=== PATIENT | female | born 1975 | race Caucasian/White ===

== ENCOUNTER 2016-12-30 19:21 | Emergency (ER) | payer OTHER ==
[~2016-12-30] VITALS: Ht 160 cm; Wt 83.3 kg
[2016-12-30] MEDS ORDERED: IBUP80TA (19:52)
[2016-12-30] MEDS ORDERED: HYDR-643 (19:52)
[2016-12-30] MEDS ORDERED: VYVA20CA (19:52)
[2016-12-30] MEDS ORDERED: METH10TA2 (19:52)
[2016-12-30] MEDS ORDERED: ESCI10TA2 (19:52)
[2016-12-30] MEDS ORDERED: NS 1,000 ML IV ONE (22:15)
[2016-12-30] MEDS ORDERED: MORPHINE 2 MG/ML 1ML SYRINGE IV PRN (22:15)
[2016-12-30 22:53] LABS: BASO % 0.5 % (0.0-1.0); EOS # 0.1 K/mm3 (0.0-0.50); EOS % 1.4 % (0.0-3.0); LARGE UNSTAINED CELL # 0.2 K/mm3 (0.0-0.4); LARGE UNSTAINED CELL % 3.3 % (0.0-4.0); LYMPH # 2.7 K/mm3 (1.5-4.5); LYMPH % 40.6 % (24.0-44.0); MEAN CORPUSCULAR HEMOGLOBIN 31.6 pg (27.0-33.0); MEAN CORPUSCULAR HGB CONC 33.4 g/dl (32.0-36.5); MEAN CORPUSCULAR VOLUME 94.8 fl (80.0-96.0); MONO # 0.8 K/mm3 (0.0-0.8); MONO % 12.9 % (0.0-5.0); NEUTROPHILS # 2.5 K/mm3 (1.8-7.7); NEUTROPHILS % 41.2 % (36.0-66.0); PLATELET COUNT, AUTOMATED 233 k/mm3 (150-450); WHITE BLOOD COUNT 6.2 K/mm3 (4.0-10.0)
[2016-12-30] MEDS ORDERED: ONDANSETRON 4MG/2ML VIAL (J2405) IV ONE (23:00)
[2016-12-30 23:17] LABS: ALBUMIN 3.7 GM/DL (3.2-5.2); ALBUMIN/GLOBULIN RATIO 1.19 (1.00-1.93); ALKALINE PHOSPHATASE 61 U/L (45-117); ALT/SGPT 22 U/L (12-78); ANION GAP 4 MEQ/L (8-16); AST/SGOT 19 U/L (15-37); BILIRUBIN,DIRECT < 0.1 MG/DL (0.0-0.2); BILIRUBIN,TOTAL 0.2 MG/DL (0.2-1.0); BLOOD UREA NITROGEN 14 MG/DL (7-18); CALCIUM LEVEL 8.5 MG/DL (8.5-10.1); CARBON DIOXIDE LEVEL 31 MEQ/L (21-32); CHLORIDE LEVEL 103 MEQ/L (98-107); CREATININE FOR GFR 0.77 MG/DL (0.55-1.02); GLOMERULAR FILTRATION RATE > 60.0 (>60); GLUCOSE, FASTING 87 MG/DL (70-105); POTASSIUM SERUM 4.1 MEQ/L (3.5-5.1); SODIUM LEVEL 138 MEQ/L (136-145); TOTAL PROTEIN 6.8 GM/DL (6.4-8.2)
--- NOTE | 2016-12-30 23:30 | REPUSA ---
Clinical history: Right upper quadrant pain. Findings: The pancreas is limited in visualization secondary to overlying bowel gas, but appears yayo sly unremarkable. The liver demonstrates uniform echotexture and echogenicity, with no mass lesions. The gallbladder is unremarkable. The common bile duct measures 6 mm and is within normal limits. The right kidney measures 12.3 cm in length. There is a cyst in the upper pole measuring 10.2 x 7.6 x 9. 3 mm. There is no ascites. Impression: 1. No acute abnormality to explain the patient's pain. 2. Simple cyst in the right kidney.
[2016-12-30] MEDS ORDERED: ZOFR4TAB3 PO (23:47)
[2016-12-30 23:55] VITALS: BP 156/63
[2016-12-31] MEDS ORDERED: ZOFR4TAB3 PO (00:03)
== END 2016-12-30 23:58 | disposition home or self-care (01) ==
LOC: M ED 21:02
DX: K80.50 Calculus of bile duct without cholangitis or cholecystitis without obstruction (principal); N28.1 Cyst of kidney, acquired; R10.11 Right upper quadrant pain; F41.9 Anxiety disorder, unspecified; F32.9 Major depressive disorder, single episode, unspecified; F17.200 Nicotine dependence, unspecified, uncomplicated; Z79.899 Other long term (current) drug therapy
CPT/HCPCS: 76705; 80048; 80076; 83605; 83690; 85025; 96374; 96375; 99283; J2405

== ENCOUNTER → 2017-08-05 | Outpatient (CLI) | payer OTHER | LOC: M LRY 19:07 | DX: M25.512 Pain in left shoulder (principal); M79.602 Pain in left arm; M25.552 Pain in left hip; M54.5 Low back pain; M16.12 Unilateral primary osteoarthritis, left hip; M51.37 Other intervertebral disc degeneration, lumbosacral region | CPT/HCPCS: 72110; G0463 ==

== ENCOUNTER 2018-01-03 18:32 | Emergency (ER) | payer OTHER ==
[2018-01-03] MEDS: LORazepam 0.5 MG TAB PO (20:09)
[2018-01-03 20:18] LABS: HEMATOCRIT 42.6 % (36.0-47.0); HEMOGLOBIN 14.2 g/dl (12.0-15.5); MEAN CORPUSCULAR HEMOGLOBIN 30.9 pg (27.0-33.0); MEAN CORPUSCULAR HGB CONC 33.3 g/dl (32.0-36.5); MEAN CORPUSCULAR VOLUME 92.8 fl (80.0-96.0); PLATELET COUNT, AUTOMATED 301 10^3/uL (150-450); RED BLOOD COUNT 4.59 10^6/uL (4.00-5.40); RED CELL DISTRIBUTION WIDTH 12.1 % (11.5-14.5); WHITE BLOOD COUNT 9.1 10^3/uL (4.0-10.0)
[2018-01-03 20:33] LABS: CONTROL LINE HCG INT CTR LINE PRESENT; HCG, SERUM QUALITATIVE NEGATIVE (NEGATIVE)
[2018-01-03 20:38] LABS: AMPHETAMINES LEVEL URINE POSITIVE (NEGATIVE); BARBITURATES URINE NEGATIVE (NEGATIVE); BENZODIAZEPINES URINE NEGATIVE (NEGATIVE); CANNABINOIDS URINE NEGATIVE (NEGATIVE); COCAINE METABOLITE URINE NEGATIVE (NEGATIVE); METHADONE URINE POSITIVE (NEGATIVE); OPIATES URINE NEGATIVE (NEGATIVE); PHENCYCLIDINE URINE NEGATIVE (NEGATIVE)
[2018-01-03 20:49] LABS: ALBUMIN 4.2 GM/DL (3.2-5.2); ALBUMIN/GLOBULIN RATIO 1.08 (1.00-1.93); ALKALINE PHOSPHATASE 75 U/L (45-117); ALT/SGPT 21 U/L (12-78); ANION GAP 8 MEQ/L (8-16); AST/SGOT 11 U/L (7-37); BILIRUBIN,DIRECT 0.1 MG/DL (0.0-0.2); BILIRUBIN,TOTAL 0.4 MG/DL (0.2-1.0); BLOOD UREA NITROGEN 17 MG/DL (7-18); CARBON DIOXIDE LEVEL 30 MEQ/L (21-32); CHLORIDE LEVEL 102 MEQ/L (98-107); GLOMERULAR FILTRATION RATE > 60.0 (>58); GLUCOSE, FASTING 124 MG/DL (70-100); SALICYLATE LEVEL < 1.7 MG/DL (5.0-30.0); SODIUM LEVEL 140 MEQ/L (136-145); TOTAL PROTEIN 8.1 GM/DL (6.4-8.2)
[2018-01-03 20:51] LABS: ACETAMINOPHEN LEVEL < 2.0 UG/ML (10.0-30.0); ETHYL ALCOHOL (ETHANOL) < 0.003 % (0.000-0.010)
== END 2018-01-03 22:17 | disposition home or self-care (01) ==
LOC: M ED 18:32
DX: F33.9 Major depressive disorder, recurrent, unspecified (principal); F41.9 Anxiety disorder, unspecified; F17.200 Nicotine dependence, unspecified, uncomplicated; Z79.899 Other long term (current) drug therapy
CPT/HCPCS: G0480

== ENCOUNTER → 2018-01-07 | Outpatient (CLI) | payer OTHER | LOC: M OUTALCOH 09:23 | DX: Z13.9 Encounter for screening, unspecified (principal); F11.10 Opioid abuse, uncomplicated | CPT/HCPCS: H0050 ==

== ENCOUNTER 2018-01-13 13:54 | Emergency (ER) | payer OTHER ==
[2018-01-13 16:33] LABS: BASO % 0.5 % (0.0-1.0); EOS % 0.1 % (0.0-3.0); HEMATOCRIT 39.1 % (36.0-47.0); HEMOGLOBIN 13.4 g/dl (12.0-15.5); IMMATURE GRANULOCYTE % 0.3 % (0-3.0); LYMPH # 2.3 10^3/uL (1.5-4.5); LYMPH % 25.5 % (24.0-44.0); MEAN CORPUSCULAR HEMOGLOBIN 31.8 pg (27.0-33.0); MEAN CORPUSCULAR HGB CONC 34.3 g/dl (32.0-36.5); MEAN CORPUSCULAR VOLUME 92.7 fl (80.0-96.0); MONO # 0.8 10^3/uL (0.0-0.8); MONO % 8.6 % (0.0-5.0); NEUTROPHILS # 5.7 10^3/uL (1.8-7.7); PLATELET COUNT, AUTOMATED 260 10^3/uL (150-450); RED BLOOD COUNT 4.22 10^6/uL (4.00-5.40); RED CELL DISTRIBUTION WIDTH 12.3 % (11.5-14.5); WHITE BLOOD COUNT 8.8 10^3/uL (4.0-10.0)
[2018-01-13 16:38] LABS: AMORPHOUS SEDIMENT SMALL (NEGATIVE); APPEARANCE, URINE CLOUDY (CLEAR); BACTERIA, URINE AUTO NEGATIVE (NEGATIVE); BILIRUBIN, URINE AUTO NEGATIVE (NEGATIVE); BLOOD, URINE BLOOD NEGATIVE (NEGATIVE); CALCIUM OXALATE CRYSTALS SMALL; COLOR, URINE YELLOW (YELLOW); GLUCOSE, URINE (UA) AUTO NEGATIVE (NEGATIVE); KETONE, URINE AUTO NEGATIVE (NEGATIVE); LEUKOCYTE ESTERASE, URINE AUTO TRACE (NEGATIVE); MUCUS, URINE LARGE (NEGATIVE); NITRITE, URINE AUTO NEGATIVE (NEGATIVE); PROTEIN, URINE AUTO NEGATIVE (NEGATIVE); RBC, URINE AUTO 2 /HPF (0-3); SPECIFIC GRAVITY URINE AUTO 1.024 (1.002-1.035); SQUAMOUS EPITHELIAL CELL UR AU 6 /HPF (0-6); UROBILINOGEN, URINE AUTO 0.2 mg/dL (0.0-2.0); WBC, URINE AUTO 3 /HPF (0-3)
[2018-01-13] MEDS: METHOCARBAMOL 1,000 MG/10 ML VIAL (J2800) IV (16:41)
[2018-01-13] MEDS: NS 1,000 ML IV (16:41)
[2018-01-13 17:03] LABS: ALBUMIN 3.7 GM/DL (3.2-5.2); ALBUMIN/GLOBULIN RATIO 1.12 (1.00-1.93); ALKALINE PHOSPHATASE 63 U/L (45-117); ALT/SGPT 19 U/L (12-78); ANION GAP 8 MEQ/L (8-16); AST/SGOT 11 U/L (7-37); BILIRUBIN,TOTAL 0.3 MG/DL (0.2-1.0); BLOOD UREA NITROGEN 10 MG/DL (7-18); CALCIUM LEVEL 8.3 MG/DL (8.5-10.1); CARBON DIOXIDE LEVEL 27 MEQ/L (21-32); CHLORIDE LEVEL 108 MEQ/L (98-107); CREATININE FOR GFR 0.75 MG/DL (0.55-1.30); GLOMERULAR FILTRATION RATE > 60.0 (>58); GLUCOSE, FASTING 105 MG/DL (70-100); LIPASE 140 U/L (73-393); POTASSIUM SERUM 3.5 MEQ/L (3.5-5.1); SODIUM LEVEL 143 MEQ/L (136-145)
[2018-01-13] MEDS ORDERED: ISOVUE-370 76% 100ML VIAL (Q9967) As Ordered (17:21)
== END 2018-01-13 19:02 | disposition home or self-care (01) ==
LOC: M ED 13:54
DX: R19.7 Diarrhea, unspecified (principal); R10.84 Generalized abdominal pain; N28.1 Cyst of kidney, acquired; M51.9 Unspecified thoracic, thoracolumbar and lumbosacral intervertebral disc disorder; F17.210 Nicotine dependence, cigarettes, uncomplicated; Z79.899 Other long term (current) drug therapy
CPT/HCPCS: Q9967

== ENCOUNTER → 2018-01-31 | Outpatient (REF) ==
[2018-01-31 15:29] LABS: RUBELLA IgG QUALITATIVE IMMUNE (IMMUNE)
[2018-02-01 11:31] LABS: RUBEOLA IgG ANTIBODY 96.3 AU/mL (Immune >29.9)
== END ==
LOC: M LAB 14:16
DX: Z02.89 Encounter for other administrative examinations (principal)

== ENCOUNTER → 2018-04-02 | Outpatient (REF) | payer OTHER | LOC: M SFHCLERA 16:21 | DX: J02.9 Acute pharyngitis, unspecified (principal) ==

== ENCOUNTER → 2018-09-19 | Outpatient (REF) | payer OTHER ==
[~2018-09-19] MED LIST: ADDE20CA3; CLON1TAB8; CLON1TAB8 PO; CYMB1CAP4 PO; ESCI10TA2; HYDR-643; IBUP80TA; METH10TA2; METH4PACK; PROM50TA4 PO; VYVA20CA; ZOFR4TAB14 PO
== END ==
LOC: M SFHCLERA 18:47
PROVIDERS: ATTEND Physician Assistant
DX: J02.9 Acute pharyngitis, unspecified (principal)

== ENCOUNTER → 2018-09-22 | Outpatient (CLI) | payer OTHER | LOC: M LRY 15:16 | PROVIDERS: ATTEND Physician Assistant | DX: R50.9 Fever, unspecified (principal); R05 Cough; Z53.8 Procedure and treatment not carried out for other reasons ==

== ENCOUNTER 2019-01-19 13:40 | Emergency (ER) | payer OTHER ==
[~2019-01-19] VITALS: Ht 160 cm; Wt 72.7 kg
[2019-01-19 13:41] VITALS: BP 152/93
[2019-01-20] MEDS ORDERED: PRED20TA PO (10:42)
== END 2019-01-19 15:55 | disposition left against medical advice (07) ==
LOC: M ED 13:40
DX: R07.0 Pain in throat (principal); Z53.21 Procedure and treatment not carried out due to patient leaving prior to being seen by health care provider

== ENCOUNTER → 2019-01-30 | Outpatient (REF) | payer OTHER ==
[~2019-01-30] MED LIST changes: +PRED20TA PO
[2019-01-30 20:27] LABS: BASO # 0.1 10^3/uL (0.0-0.2); BASO % 0.6 % (0.0-1.0); EOS # 0.1 10^3/uL (0.0-0.50); EOS % 0.7 % (0.0-3.0); HEMATOCRIT 39.8 % (36.0-47.0); HEMOGLOBIN 13.4 g/dl (12.0-15.5); LYMPH # 1.3 10^3/uL (1.5-4.5); LYMPH % 14.7 % (24.0-44.0); MEAN CORPUSCULAR HEMOGLOBIN 33.1 pg (27.0-33.0); MEAN CORPUSCULAR HGB CONC 33.7 g/dl (32.0-36.5); MEAN CORPUSCULAR VOLUME 98.3 fl (80.0-96.0); MONO # 0.8 10^3/uL (0.0-0.8); MONO % 9.3 % (0.0-5.0); NEUTROPHILS # 6.8 10^3/uL (1.8-7.7); NEUTROPHILS % 74.4 % (36.0-66.0); PLATELET COUNT, AUTOMATED 258 10^3/uL (150-450); RED BLOOD COUNT 4.05 10^6/uL (4.00-5.40); WHITE BLOOD COUNT 9.1 10^3/uL (4.0-10.0)
[2019-01-30 20:50] LABS: FREE T4 0.76 NG/DL (0.76-1.46); THYROID STIMULATING HORMONE 1.6 uIU/ML (0.358-3.740)
== END ==
LOC: M SFHCLERA 16:32
PROVIDERS: ATTEND Physician Assistant Medical
DX: J30.9 Allergic rhinitis, unspecified (principal)

== ENCOUNTER → 2019-02-12 | Outpatient (REF) | payer OTHER | LOC: M LAB REF 17:16 | PROVIDERS: ATTEND Internal Medicine Endocrinology, Diabetes & Metabolism | DX: E04.1 Nontoxic single thyroid nodule (principal) ==

== ENCOUNTER 2019-03-18 13:44 | Emergency (ER) | payer OTHER ==
[~2019-03-18] VITALS: Ht 160 cm; Wt 72.7 kg
[2019-03-18] MEDS ORDERED: ACET-861 PO (14:03)
[2019-03-18] MEDS ORDERED: VALA500T5 (14:05)
[2019-03-18] MEDS ORDERED: AMPH30CA (14:05)
[2019-03-18] MEDS ORDERED: LORA-674 (14:05)
[2019-03-18] MEDS ORDERED: IBUP-1022 (14:05)
[2019-03-18 14:49] LABS: BASO % 0.4 % (0.0-1.0); EOS % 0.5 % (0.0-3.0); HEMOGLOBIN 13.9 g/dl (12.0-15.5); LYMPH # 1.5 10^3/uL (1.5-5.0); LYMPH % 20.1 % (24.0-44.0); MEAN CORPUSCULAR HEMOGLOBIN 32.4 pg (27.0-33.0); MEAN CORPUSCULAR HGB CONC 33.9 g/dl (32.0-36.5); MEAN CORPUSCULAR VOLUME 95.6 fl (80.0-96.0); MONO # 0.6 10^3/uL (0.0-0.8); MONO % 8.3 % (0.0-5.0); NEUTROPHILS # 5.3 10^3/uL (1.5-8.5); NEUTROPHILS % 70.4 % (36.0-66.0); PLATELET COUNT, AUTOMATED 279 10^3/uL (150-450); RED BLOOD COUNT 4.29 10^6/uL (4.00-5.40); WHITE BLOOD COUNT 7.6 10^3/uL (4.0-10.0)
[2019-03-18 15:23] LABS: BLOOD UREA NITROGEN 15 MG/DL (7-18); CALCIUM LEVEL 8.9 MG/DL (8.5-10.1); CARBON DIOXIDE LEVEL 29 MEQ/L (21-32); CHLORIDE LEVEL 107 MEQ/L (98-107); CK-MB VALUE MASS 1.6 NG/ML (<3.6); CPK CREATINE PHOSPHOKINASE 199 U/L (26-192); CREATININE FOR GFR 0.68 MG/DL (0.55-1.30); GLOMERULAR FILTRATION RATE > 60.0 (>58); GLUCOSE, FASTING 110 MG/DL (70-100); POTASSIUM SERUM 3.9 MEQ/L (3.5-5.1); SODIUM LEVEL 139 MEQ/L (136-145); TROPONIN I < 0.02 NG/ML (< 0.10)
[2019-03-18] MEDS ORDERED: ISOVUE-370 76% 100ML VIAL (Q9967) As Ordered ONE (15:51)
[2019-03-18] MEDS ORDERED: KETOROLAC 30 MG/ML VIAL (J1885) IV ONE (16:00)
[2019-03-18 16:14] LABS: FREE THYROXINE INDEX 2.4 % (1.3-4.8); T UPTAKE 31 % (30-39); THYROXINE (T4) 7.8 UG/DL (4.5-12.0)
--- NOTE | 2019-03-18 16:33 | REP ---
Clinical: Enlarged tender thyroid gland. Technique: Axial contrast enhanced images from the skull base to the thoracic inlet with coronal and sagittal re-formations using 100 ml Isovue 370 intravenous contrast material. Findings: The right thyroid gland appears to be completely replaced by a large low density possibly complex cystic lesion/nodule which measures roughly 7.8 x 5.2 x 4.1 cm causing mass effect and mild contralateral midline shift to the trachea. No obvious significant residual normal enhancing thyroid tissue to the right lobe is appreciated. There is no significant enhancement pattern or internal gas to suggest abscess. These findings are relatively similar to recent ultrasound dated 01/20/2019. Associated reactive adenopathy in the cervical and jugular chains are appreciated measuring up to 2 cm and suggest an infectious/inflammatory process of the thyroid gland. Remainder of the contrast enhanced CT of the neck appears normal. Impression: Enlarged right thyroid lobe with relatively low density texture and no significant obvious enhancement. Associated adenopathy is appreciated and findings suggest an infectious/inflammatory process and possible phlegmonous changes without discrete abscess. Ultrasound examination should be considered to evaluate for drainable fluid or other abnormality. Electronically Signed by Kranthi Sabillon MD 03/18/2019 04:24 P
[2019-03-18] MEDS ORDERED: CLINDAMYCIN 300 MG in IV 1 EA IV ONE (18:00)
[2019-03-18] MEDS ORDERED: IBUPROFEN 600 MG TAB PO ONE (18:30)
[2019-03-18 18:53] VITALS: BP 124/80
--- NOTE | 2019-03-18 20:28 | ECGEPIP ---
[facility] - ED Test Date: 2019-03-18 Pat Name: MYRON VELEZ Department: Room: - Gender: Female Warehouse Logistics Manager: KARIS : 1975 Requested By: KIMANI FONTENOT Order Number: [id number] Reading MD: Angela Martin Measurements Intervals [place] Rate: 110 P: 73 WV: 146 QRS: -75 QRSD: 82 T: 57 QT: 321 QTc: 435 Interpretive Statements SINUS TACHYCARDIA LEFT ANTERIOR FASCICULAR BLOCK NSTTW abnormalities NO PRIOR Electronically Signed on 03-18-2019 20:28:33 EDT by Angela Martin
[2019-04-08] MEDS ORDERED: PRED50TA PO (13:51)
[2019-04-08] MEDS ORDERED: ATIV1TAB10 PO (13:52)
[2019-04-09] MEDS ORDERED: OLAN10TA2 PO (09:31)
[2019-04-09] MEDS ORDERED: PROC10TA4 PO (09:31)
[2019-04-09] MEDS ORDERED: ONDA8TAB7 PO (09:31)
== END 2019-03-18 18:55 | disposition short-term general hospital (02) ==
LOC: M ED 13:44
DX: E06.9 Thyroiditis, unspecified (principal); R00.0 Tachycardia, unspecified; I44.4 Left anterior fascicular block; F17.200 Nicotine dependence, unspecified, uncomplicated; Z79.899 Other long term (current) drug therapy
CPT/HCPCS: 36415; 70491; 80048; 82550; 82553; 84436; 84439; 84443; 84479; 84484; 85025; 93005; 93041; 94760; 96365; 99285; Q9967

== ENCOUNTER → 2019-04-07 | Outpatient (CLI) | payer OTHER ==
[~2019-04-07] MED LIST changes: +ACET-861 PO; +AMPH30CA; +ATIV1TAB10 PO; +IBUP-1022; +LIDO2.5C15 TOP; +LORA-674; +OLAN10TA2 PO; +ONDA8TAB7 PO; +PRED50TA PO; +PROC10TA4 PO; +VALA500T5
--- NOTE | 2019-04-08 23:27 | ECHO ---
DATE OF PROCEDURE: 04/07/2019 AGE: 43 GENDER: Female HEIGHT: 63 inches WEIGHT: 160 pounds BODY SURFACE AREA: 1.76 m2 PATIENT LOCATION: Outpatient REFERRING PHYSICIAN: Liss Rosenbaum NP INDICATION: Lymphoma, potentially cardiotoxic chemotherapy. 2-D MEASUREMENTS: RV: 3.0 cm LV: 5.4 cm Septum: 0.8 cm Posterior wall: 0.8 cm Aortic root: 2.8 cm LA: 2.9 cm LVEF: 70% DOPPLER MEASUREMENTS: AV: 1.4 m/s LVOT: 1.0 m/s LVOT diameter: 2.0 cm MV-E: 94, A: 65, EA ratio: 1.5 Early mitral deceleration time: 150 ms E prime: 12.4, A prime: 9, E/E prime ratio: 7.6 PV: 0.9 m/s Pulmonary artery acceleration time: 140 ms PASP: 20 mmHg IVC: 1.3 cm COMMENTS Normal sinus rhythm without intraventricular conduction disturbance. M-mode and two-dimensional echocardiography was performed with pulsed, continuous wave, color flow and tissue Doppler studies. Normal left ventricular size, wall thickness and hyperkinetic wall motion. Normal left atrial size and Doppler assessment of LV diastolic function and estimated mean left atrial pressure. Normal right heart chamber sizes and motion and estimated pulmonary arterial pressure. Normal IVC size and collapse against an elevated pulmonary vascular resistance. Normal appearing and functioning valvular structures. Normal aortic root size. No apparent intracardiac mass or pericardial effusion.
== END ==
LOC: M CARPUL 09:17
PROVIDERS: ATTEND Nurse Practitioner Family
DX: C85.10 Unspecified B-cell lymphoma, unspecified site (principal)

== ENCOUNTER → 2019-04-08 | Outpatient (CLI) | payer OTHER ==
[~2019-04-08] MED LIST changes: +GASTROGRAFIN SOLUTION 30ML (Q9963) As Ordered ONE; +ISOVUE-370 76% 100ML VIAL (Q9967) As Ordered ONE
--- NOTE | 2019-04-08 12:30 | REP ---
CT of the chest with IV contrast: There are no comparison chest CT studies. There is a large anterior mediastinal mass measuring up to 5.0 cm in AP diameter resulting in shift of the upper trachea to the left and slight tracheal narrowing. This may represent a thyroid mass. There is no other mediastinal adenopathy or mass. There is no hilar adenopathy. There is no axillary adenopathy. There are no infiltrates or pleural effusions. There are no lung nodules or masses. There are no lytic, blastic or destructive skeletal changes. Impression: Large anterior mediastinal mass as described, similar to the neck CT dated 03/18/2019. No other mediastinal, hilar or axillary adenopathy or mass. There are no lung masses or nodules. There are no infiltrates or effusions. No skeletal lesions are identified. Electronically Signed by Dae Plascencia MD 04/08/2019 12:21 P
--- NOTE | 2019-04-08 12:41 | REP ---
CT of the abdomen and pelvis with IV and oral contrast: Comparison is 2017. The study is performed. Contiguous with the chest CT of this same date. There is a dual phase imaging, initially during the portal venous phase of enhancement and again during the equilibrium phase of enhancement. The visualized lower lung real are unremarkable. The the hepatic parenchyma is homogeneous. The gallbladder, pancreas and spleen are unremarkable. The adrenals and kidneys are unremarkable except for a small left renal upper pole Bosniak type 1 renal cortical cyst, unchanged from the prior study. The abdominal aorta is unremarkable. There is no periaortic adenopathy or mass. The large and small bowel are unremarkable. The mesentery is unremarkable. There is no mesenteric lymph node enlargement. There is no ascites. Pelvis: The appendix is unremarkable. The uterus and left adnexa are unremarkable. There is a right adnexal 15 ml follicle. The bladder is unremarkable. There is no pelvic adenopathy. There is no pelvic ascites. There are no lytic, blastic or destructive skeletal changes. Impression: Essentially negative CT study of the abdomen and pelvis. There is no lymphadenopathy, mass, or ascites. Electronically Signed by Dae Plascencia MD 04/08/2019 12:32 P
--- NOTE | 2019-04-08 13:33 | REP ---
CT NECK WITH IV CONTRAST: CT soft tissues neck performed following the intravenous administration of 100 mL of Isovue 370. Sagittal and coronal reconstruction images are performed. Comparison is made with a prior study of 03/18/2019. Once again there is a large mass in the region of the right thyroid. Superior extent is at about the level of the hyoid bone and inferiorly the mass extends into the superior mediastinum. There is mild mass effect and on the trachea, mildly narrowing the trachea. This unchanged since 03/18/2019. Trachea is deviated to the left of midline. Size appears to have slightly increased since that prior exam. Maximum AP dimension is approximately 5.3 cm, previously about 5 cm. Maximum transverse dimension is approximately 6.5 cm, previously 5.9 cm. Visually the craniocaudal dimension appears to have slightly increased, but it is difficult to measure as the inferior margin is not well defined. There is mild increase in adenopathy. There are two enlarged lymph nodes at the posterior angle of the right mandible, one anterior to the jugular vein measuring about 2.3 x 1.3 cm and another posterior to the jugular vein measuring approximately 2.3 x 1.6 cm. Both of these have increased in size. Multiple subcentimeter lymph nodes are seen along the carotid and jugular vessels both on the right and the left. A cluster of adenopathy in the right supraclavicular region along the posterior margin of the carotid and jugular vessels appears to have slightly increased in size. A mildly enlarged left paratracheal lymph node is seen at that level 1.3 cm in short axis and another is seen more laterally 1.1 cm in short axis. A mildly enlarged lymph node is seen in the left posterior triangle at about the level of the hyoid bone. Parotid glands are symmetrical as are the submandibular glands with no intrinsic abnormality. There may be mild enlargement of the right palatine tonsil. Aryepiglottic folds are symmetrical. There are mild degenerative changes of the spine. IMPRESSION: Mild increase in size of large mass in the region of the right thyroid. There is mild impression upon the trachea causing mild luminal narrowing, but the caliber is unchanged since 03/18/2019. Trachea is deviated to the left. There is mild increase in bilateral neck adenopathy, which is more significant on the right than on the left. Electronically Signed by Dae Ann MD 04/08/2019 03:20 P
== END ==
LOC: M RAD 10:17
PROVIDERS: ATTEND Nurse Practitioner Family
DX: C85.11 Unspecified B-cell lymphoma, lymph nodes of head, face, and neck (principal)

== ENCOUNTER → 2019-04-13 | Outpatient (CLI) | payer OTHER ==
[~2019-04-13] MED LIST changes: +AMPH1CAP5; -AMPH30CA; +EFFE37.5 PO; -GASTROGRAFIN SOLUTION 30ML (Q9963) As Ordered ONE; -ISOVUE-370 76% 100ML VIAL (Q9967) As Ordered ONE; +LEXA1TAB PO; +LIDOCAINE 1% MDV 20ML VIAL As Ordered ONE; +MIDAZOLAM INJ 2 MG/2 ML VIAL (J2250) As Ordered ONE; +ONDA8TAB10 PO; -ONDA8TAB7 PO; +PRIL20TA2 PO; +VITA1CAP25 PO; +ZITH250T PO; +ceFAZolin 1GM INJ (J0690 PER 500MG) As Ordered ONE; +diphenhydrAMINE INJ 50MG/ML VIAL (J1200) As Ordered ONE; +fentaNYL 100 MCG/2 ML INJECTION (J3010) As Ordered ONE
--- NOTE | 2019-04-13 10:21 | POST-OPPD ---
Postoperative Procedure Note Date Of Procedure: Apr 13, 2019 Time Of Procedure: 10:19 PREOPERATIVE DIAGNOSIS: lymphoma POSTOPERATIVE DIAGNOSIS: lymphoma FINDINGS: partially patent right IJ PROCEDURE: right IJ port SURGEON: Adriana ANESTHESIA: moderate sedation ESTIMATED BLOOD LOSS: < 5 ml COMPLICATIONS: none POSTOPERATIVE CONDITION: stable LUCRECIA CLARK MD Apr 13, 2019 10:21
[2019-04-13 10:55] VITALS: BP 144/90
--- NOTE | 2019-04-13 15:10 | REP ---
IR Ultrasound and fluoroscopy-guided port placement. IR Ultrasound of the neck. IR Moderate sedation. Clinical information: Lymphoma. Physician: Dr. Wright. Procedure: The patient was advised of the benefits, risks, and alternatives of the procedure and informed consent was obtained. A time-out was performed with verification of the patient's name, MRN, site of procedure and type of procedure to be performed. The patient was positioned in the supine position on the angiographic table. The site was prepped and draped in the usual sterile fashion. Moderate sedation was performed by the physician including the presence of an independent trained observer who assisted and monitored the patient's level of consciousness and physiologic status. Following the administration of Fentanyl and Versed, the physician spent 45 minutes of continuous face to face time with the patient. Ultrasound of the neck reveals a patent and partly compressible right internal jugular vein. A pouch maker radiograph reveals no gross abnormality. The neck and anterior chest wall were anesthetized with lidocaine. The right internal jugular vein was accessed using a microintroducer needle by a lateral approach. An 018 wire was advanced into the superior vena cava, the needle was removed and a microsheath was placed. An Amplatz wire was then passed into the inferior vena cava. An incision at the internal jugular vein access site and anterior chest wall were made using a scalpel. An incision was made at the anterior chest wall. A small pocket was created using a combination of blunt and sharp dissection. A tunneling device was then used to pass the catheter from the pocket to the neck puncture site. An 8-[place] [employer] smart power port was then positioned in the pocket. The catheter was then measured and cut. The introducer sheath was exchanged for a peel-away sheath. The catheter was passed through the peel-away sheath into the internal jugular vein and the peel-away sheath was removed. The port tip was positioned at the cavo atrial junction. The port was then accessed with a Burton needle. The port flushes and aspirates well. The puncture site in the neck was closed. The chest wall incision was then closed with 2-0 Vicryl and 4-0 Monocryl. Glue and Steri-Strips were applied. A sterile dressing was then applied. The patient tolerated the procedure well and was returned to the PRU in stable condition. Estimated blood loss: <5 ml. Complications: None. Conclusion: 1. Successful placement of an 8-[place] [employer] smart power port via the right internal jugular vein. The port is ready for immediate use. 2. Patient to follow up in IR clinic in 2 weeks. Thank you for this referral. Electronically Signed by Callie Wright MD 04/13/2019 03:08 P
== END ==
LOC: M IRPRO 07:25
PROVIDERS: ATTEND Radiology Diagnostic Radiology
DX: C83.30 Diffuse large B-cell lymphoma, unspecified site (principal); J30.9 Allergic rhinitis, unspecified; E04.9 Nontoxic goiter, unspecified
CPT/HCPCS: 36561; 76937; 99152; 99153; C1769; C1788; C1894; J0690; J1200; J2250; J3010

== ENCOUNTER → 2019-04-21 | Outpatient (CLI) | payer OTHER ==
[~2019-04-21] MED LIST changes: -AMPH1CAP5; +AMPH30CA; -EFFE37.5 PO; -LEXA1TAB PO; -LIDOCAINE 1% MDV 20ML VIAL As Ordered ONE; -MIDAZOLAM INJ 2 MG/2 ML VIAL (J2250) As Ordered ONE; -ONDA8TAB10 PO; +ONDA8TAB7 PO; -PRIL20TA2 PO; -ceFAZolin 1GM INJ (J0690 PER 500MG) As Ordered ONE; -diphenhydrAMINE INJ 50MG/ML VIAL (J1200) As Ordered ONE; -fentaNYL 100 MCG/2 ML INJECTION (J3010) As Ordered ONE
--- NOTE | 2019-04-21 17:56 | REP ---
PET/CT: History: Staging B-cell lymphoma. Status post excisional biopsy right cervical lymphadenopathy and chemotherapy. Comparisons: Comparison CT study of the neck, chest, abdomen and pelvis April 08, 2019. TECHNIQUE: 49 minutes following the intravenous injection of a 8.50 mCi dose of F-18 FDG, three-dimensional PET scintigraphy is acquired from the skull base to the proximal thighs. Triplanar noncontrast CT scanning is acquired through the same anatomic range for attenuation correction, and image registration with scan parameters optimized to minimize radiation exposure to the patient. PET scintigraphy and CT datasets were fused and displayed on a workstation with multiplanar and projection display capability. PET/CT Findings: The previously noted large bulky adenopathy in the right neck is much improved. There is a small focus of minimally hypermetabolic uptake in the right neck subcutaneously with maximum standard uptake value 3.2. Mildly hypermetabolic uptake is seen in the right thyroid bed just to the right of the trachea, maximum standard uptake value 3.77. There is a right-sided Kyrobd-C-Pqyg. There is no abnormal hypermetabolic uptake in the thorax. There is no abnormal hypermetabolic uptake in the abdomen or pelvis. There is diffuse increased uptake in the axial skeleton consistent with reactive marrow activity induced by chemotherapy. No focal suspicious uptake. There is some mild misregistration due to patient movement. Impression: The right neck lymphadenopathy is markedly improved. Mild residual hypermetabolic uptake in the right thyroid bed and in a single focus in the subcutaneous region of the right neck. No other hypermetabolic uptake is appreciated. Electronically Signed by Babatunde Spivey MD 04/22/2019 09:17 A
== END ==
LOC: M PLARAD 12:05
PROVIDERS: ATTEND Nurse Practitioner Family
DX: C83.31 Diffuse large B-cell lymphoma, lymph nodes of head, face, and neck (principal)

== ENCOUNTER 2019-05-13 22:15 | Emergency (ER) | payer OTHER ==
[~2019-05-13] VITALS: Ht 160 cm; Wt 61.4 kg
[~2019-05-13 22:15] MED LIST changes: +AMPH1CAP5; -AMPH30CA
[2019-05-13 23:21] LABS: HEMATOCRIT 36.2 % (36.0-47.0); HEMOGLOBIN 11.9 g/dl (12.0-15.5); MEAN CORPUSCULAR HEMOGLOBIN 32.6 pg (27.0-33.0); MEAN CORPUSCULAR HGB CONC 32.9 g/dl (32.0-36.5); MEAN CORPUSCULAR VOLUME 99.2 fl (80.0-96.0); PLATELET COUNT, AUTOMATED 159 10^3/uL (150-450); RED BLOOD COUNT 3.65 10^6/uL (4.00-5.40); WHITE BLOOD COUNT 9.2 10^3/uL (4.0-10.0)
[2019-05-13 23:32] LABS: BLOOD UREA NITROGEN 9 MG/DL (7-18); CALCIUM LEVEL 10.1 MG/DL (8.5-10.1); CARBON DIOXIDE LEVEL 29 MEQ/L (21-32); CHLORIDE LEVEL 104 MEQ/L (98-107); CK-MB VALUE MASS < 1.0 NG/ML (<3.6); CPK CREATINE PHOSPHOKINASE 83 U/L (26-192); CREATININE FOR GFR 0.55 MG/DL (0.55-1.30); ETHYL ALCOHOL (ETHANOL) 0.155 % (0.000-0.010); GLOMERULAR FILTRATION RATE > 60.0 (>58); GLUCOSE, FASTING 107 MG/DL (70-100); SODIUM LEVEL 140 MEQ/L (136-145); TROPONIN I < 0.02 NG/ML (< 0.10)
[2019-05-13 23:59] LABS: BASOPHILS 1 % (0-1); LYMPHOCYTES 18 % (16-44); MONOCYTES 5 % (0-5); NEUTROPHILS 75 % (28-66)
[2019-05-14 00:07] LABS: PLATELET ESTIMATE NORMAL (NORMAL)
[2019-05-14] MEDS ORDERED: ISOVUE-370 76% 100ML VIAL (Q9967) As Ordered ONE (00:16)
--- NOTE | 2019-05-14 00:56 | REPVR ---
PROCEDURE INFORMATION: Exam: CT Angiography Chest With Contrast Exam date and time: 05/14/2019 12:05 AM Clinical history: 43 years old, female; Chest pain; Type not specified; Additional info: Cp TECHNIQUE: Imaging protocol: Computed tomographic angiography of the chest with intravenous contrast. 3D rendering: MIP reconstructed images were created and reviewed. Radiation optimization: All CT scans at this facility use at least one of these dose optimization techniques: automated exposure control; mA and/or kV adjustment per patient size (includes targeted exams where dose is matched to clinical indication); or iterative reconstruction. Contrast material: ISO; Contrast volume: 75 ml; Contrast route: HAND; COMPARISON: CT Chest with contrast 04/08/2019 12:03 PM FINDINGS: Pulmonary arteries: No focal pulmonary artery filling defect to suggest acute pulmonary embolus. Aorta: No thoracic aortic aneurysm or dissection. Lungs: Pulmonary vascular/interstitial pattern does not suggest active pulmonary edema. No suspicious lung mass or air space process. No central endobronchial lesion. Pleural space: No pleural effusion or pneumothorax. Heart: No cardiac enlargement or pericardial effusion. Lymph nodes: Small, nonspecific mediastinal nodes are present. Bones/joints: Bony structures show no acute fracture or destructive process. IMPRESSION: 1. No evidence of acute pulmonary embolus. 2. No other acute or concerning focal intrathoracic abnormality. Electronically signed by: Marlon Perry On 05/14/2019 00:55:29 AM
[2019-05-14 01:08] VITALS: BP 121/70
--- NOTE | 2019-05-14 07:00 | ECGEPIP ---
[facility] - ED Test Date: 2019-05-13 Pat Name: MYRON VELEZ Department: Room: - Gender: Female Technical Account Executive: aimee : 1975 Requested By: CORRY LEW Order Number: [id number] Reading MD: Angela Martin Measurements Intervals [place] Rate: 108 P: 62 ID: [id number] QRS: 27 QRSD: 86 T: 51 QT: 320 QTc: 430 Interpretive Statements SINUS TACHYCARDIA INDETERMINATE AXIS SIMILAR 03/18/19 ABNORMAL RHYTHM ECG LAFB Electronically Signed on 05-14-2019 7:00:06 EDT by Angela Martin
--- NOTE | 2019-05-14 07:56 | REP ---
Portable chest x-ray: Single view. History: Chest pain. Comparison is made with chest CT findings from April 08, 2019. Findings: There is a right-sided Kgellr-E-Sgxu catheter in place. The lungs are well inflated and clear. Pleural angles are sharp. Heart size is normal. Mediastinum is not visibly widened. Impression: Lpawxq-Q-Kdkl catheter in place. No acute disease. Electronically Signed by Babatunde Spivey MD 05/14/2019 07:47 A
== END 2019-05-14 01:30 | disposition home or self-care (01) ==
LOC: M ED 22:15
DX: R07.89 Other chest pain (principal); F10.10 Alcohol abuse, uncomplicated; R00.0 Tachycardia, unspecified; R94.31 Abnormal electrocardiogram [ECG] [EKG]; E06.3 Autoimmune thyroiditis; C83.31 Diffuse large B-cell lymphoma, lymph nodes of head, face, and neck; Z95.828 Presence of other vascular implants and grafts; F17.200 Nicotine dependence, unspecified, uncomplicated; Z79.899 Other long term (current) drug therapy
CPT/HCPCS: 36415; 71045; 71275; 80048; 82550; 82553; 84484; 85025; 87040; 93005; 93041; 94760; 99284; G0480; Q9967

== ENCOUNTER → 2019-09-14 | Outpatient (CLI) | payer OTHER ==
[~2019-09-14] MED LIST changes: +EFFE37.5 PO; +FLUC100T PO; +LEXA1TAB PO; +ONDA8TAB10 PO; -ONDA8TAB7 PO; +PRIL20TA2 PO
--- NOTE | 2019-09-15 08:33 | REP ---
PET/CT: History: Restaging large B-cell lymphoma Comparisons: Comparison PET/CT study April 21, 2019. Comparison CT study is April 08, 2019. TECHNIQUE: 45 minutes following the intravenous injection of a 8.47 mCi dose of F-18 FDG, three-dimensional PET scintigraphy is acquired from the skull base to the proximal thighs. Triplanar noncontrast CT scanning is acquired through the same anatomic range for attenuation correction, and image registration with scan parameters optimized to minimize radiation exposure to the patient. PET scintigraphy and CT datasets were fused and displayed on a workstation with multiplanar and projection display capability. PET/CT Findings: There is no abnormal head and neck hypermetabolic uptake. There is no visible lymphadenopathy. A right-sided Pioghd-H-Vmhn catheter is noted. There is no abnormal hypermetabolic uptake within the chest. No hilar or mediastinal adenopathy is observed. No abnormal pulmonary parenchymal opacity or hypermetabolic uptake is seen. In the abdomen and pelvis, there is normal distribution of tracer to the liver, spleen, genitourinary, and gastrointestinal tracts. No abnormal abdominal or pelvic hypermetabolic uptake is seen. No abnormal skeletal uptake is observed. Impression: Negative PET scintigraphy. Electronically Signed by Babatunde Spivey MD 09/15/2019 08:39 A
== END ==
LOC: M PLARAD 12:26
PROVIDERS: ATTEND Internal Medicine Medical Oncology
DX: C83.31 Diffuse large B-cell lymphoma, lymph nodes of head, face, and neck (principal)
CPT/HCPCS: 78815; A9552

== ENCOUNTER → 2019-10-07 | Outpatient (CLI) | payer OTHER ==
[~2019-10-07] MED LIST changes: +ISOVUE-370 76% 100ML VIAL (Q9967) As Ordered ONE
--- NOTE | 2019-10-07 11:17 | REP ---
Clinical: History of large B-cell lymphoma. Restaging. Technique: Axial contrast enhanced images from the mid skull through the thoracic inlet with coronal and sagittal re-formations using 75 ml Isovue 370 intravenous contrast material. Comparison: 04/08/2019. Findings: The previously noted large right thyroid mass along with cervical adenopathy has completely resolved. The thyroid gland is now relatively symmetric and demonstrates essentially normal enhancement and there is no significant cervical adenopathy identified. Specifically, the largest right-sided lymph node measures approximately 9.5 mm maximal diameter and left cervical nodes measure up to approximately 8 mm maximal diameter. Nasopharyngeal, oral pharyngeal, parapharyngeal and retropharyngeal soft tissues are essentially symmetric and normal. Vascular structures through the neck are symmetric. No evidence for mass or mass effect. Sinuses and mastoid air cells are clear. Bilateral orbits are symmetric and normal. The osseous structures appear intact and unremarkable. Impression: 1. Previously noted large right thyroid mass and cervical adenopathy completely resolved. Right thyroid lobe is now relatively normal and symmetric in appearance and right-sided lymph nodes are essentially unremarkable and measure up to 9.5 mm maximal diameter. 2. Contrast enhanced neck CT is otherwise normal. Electronically Signed by Kranthi Sabillon MD 10/07/2019 11:09 A
--- NOTE | 2019-10-07 11:59 | REP ---
CT CHEST WITH IV CONTRAST: HISTORY: Stage II diffuse large B-cell lymphoma for restaging. Rule out adenopathy. COMPARISON CT STUDY: May 14, 2019. CT CONTRAST DOSE: 100 mL of intravenous Isovue 370. CT FINDINGS: There is good opacification of the thoracic aorta and pulmonary arterial tree. No intravascular abnormality is seen. There is a right-sided central venous catheter consistent with an Shnzdq-I-Jlpk. No hilar or mediastinal mass or adenopathy is observed. No pleural or pericardial effusion is seen. No axillary or other extrathoracic adenopathy is seen. The lung real demonstrate mild linear plate-like atelectasis or fibrosis in the right middle lobe. This is slightly more prominent medially in the right middle lobe than it was May 14, 2019 and is consistent with fibrosis. Remaining lung real are clear. No infiltrate or mass is seen. No bony destructive lesion. There is a small cyst in the upper pole of the right kidney. No adrenal abnormality is seen. Visualized upper abdominal structures are unchanged and otherwise unremarkable. IMPRESSION: No acute disease. Electronically Signed by Babatunde Spivey MD 10/07/2019 01:25 P
== END ==
LOC: M RAD 10:07
PROVIDERS: ATTEND Internal Medicine Medical Oncology
DX: C83.30 Diffuse large B-cell lymphoma, unspecified site (principal); Z95.828 Presence of other vascular implants and grafts; N28.1 Cyst of kidney, acquired
CPT/HCPCS: 70491; 71260; Q9967

== ENCOUNTER → 2019-12-15 | Outpatient (CLI) | payer OTHER ==
[~2019-12-15] MED LIST changes: +GASTROGRAFIN SOLUTION 30ML (Q9963) As Ordered ONE; -ISOVUE-370 76% 100ML VIAL (Q9967) As Ordered ONE; +ISOVUE-370 76% 100ML VIAL As Ordered ONE
--- NOTE | 2019-12-15 17:44 | REP ---
REASON: History of B-cell lymphoma. COMPARISON: Multiple, the latest 10/07/2019. CONTRAST: 100 mL Isovue-370. The mediastinum and pulmonary jennifer are unchanged. No mass or adenopathy has developed. There is no axillary adenopathy. There are no pleural or pericardial effusions. There is no change in the imaged osseous structures. Evaluation of the lung real shows no new abnormal nodules, masses, or opacities. IMPRESSION: Stable CT examination of the chest. There are no new abnormalities. Electronically Signed by Jayce Villar DO 12/16/2019 11:20 A
--- NOTE | 2019-12-15 17:50 | REP ---
REASON: B-cell lymphoma. Latest prior for comparison is 04/08/2019, which was within normal limits, showing no evidence of acute disease. CONTRAST: 100 mL Isovue-370. The liver, gallbladder, spleen, pancreas, adrenal glands, and kidneys are unchanged. There is an incidental tiny hepatic cyst and incidental small right renal cyst, status quo. The abdominal aorta and para-aortic regions are unchanged. There is no para-aortic adenopathy. The bowel loops and their mesenteries are again seen to be within normal limits. There is no free fluid or free air. There is no intra-abdominal mass or adenopathy. CT PELVIS: The bowel loops and their mesenteries are essentially unchanged. There is no evidence of a pelvic mass or adenopathy. There is no free fluid or free air. Bone window technique through the examination shows no significant change in appearance of the osseous structures. They are stable and intact. IMPRESSION: No significant change compared to the prior exam. There is no evidence of acute disease. Findings as described above. Electronically Signed by Jayce Villar DO 12/16/2019 11:20 A
--- NOTE | 2019-12-15 21:19 | REPVR ---
PROCEDURE INFORMATION: Exam: CT Neck With Contrast Exam date and time: 12/15/2019 3:18 PM Age: 44 years old Clinical indication: Neck pain; Additional info: H/o difused large cell B cell lymphoma TECHNIQUE: Imaging protocol: Computed tomography images of the neck with intravenous contrast. Radiation optimization: All CT scans at this facility use at least one of these dose optimization techniques: automated exposure control; mA and/or kV adjustment per patient size (includes targeted exams where dose is matched to clinical indication); or iterative reconstruction. Contrast material: ISO 370; Contrast volume: 75 ml; Contrast route: IV; COMPARISON: CT Neck with contrast 10/07/2019 10:34 AM FINDINGS: Tubes, catheters and devices: There is a right internal jugular MediPort. Orbits: The globes and orbits are intact and normal in appearance. Mastoid air cells: Clear. Auditory system: The middle ear spaces are clear. Sinuses: There is moderate opacification of the right frontal sinus. No air-fluid levels are noted in the sinuses. Nasal cavity: There is a chronic nasal septal perforation that is similar in appearance compared to the prior CT on 10/07/2019. Incidental note is made of a right nasal piercing. Nasopharynx: Normal. Oral Cavity: Normal. Dental: There are dental caries involving the right upper 1st premolar, which are similar in appearance compared to the prior CT neck on 10/07/2019 (image 35 of the sagittal series 203). Several teeth are missing. Oropharynx: Normal. No enlargement of the palatine tonsils. No tonsillar or peritonsillar abscess. Hypopharynx: Normal. Larynx: Normal. No swelling of the epiglottis. No mass. Retropharyngeal space: Normal. No retropharyngeal edema or fluid collection. Submandibular/Parotid glands: Normal. Thyroid: There is a 4 mm rim calcified nodule in the lateral aspect of the midpole of the right lobe of the thyroid gland that is unchanged compared to the prior CT neck on 10/07/2019 (image 42 of the coronal series 202). No other thyroid nodules are noted. No enlargement of the thyroid gland is present. Lymph nodes: No enlarged lymph nodes. Trachea: Unremarkable. Lungs: The imaged lung apices are clear. The lungs were not fully imaged. Bones/joints: There is no fracture or dislocation. There are degenerative changes in the cervical spine. There are mild degenerative changes of both temporomandibular joints. No suspicious osteolytic or osteoblastic lesion is noted. Vasculature: The vertebral arteries, common carotid arteries, internal carotid arteries, and external carotid arteries are patent and there is no dissection. Soft tissues: Unremarkable. No soft tissue fluid collection. IMPRESSION: 1. No acute findings, mass, or lymphadenopathy in the neck. 2. Dental caries involving the right upper 1st premolar, which are similar in appearance compared to the prior CT neck on 10/07/2019. 3. Chronic nasal septal perforation that is similar in appearance compared to the prior CT neck on 10/07/2019. 4. 4 mm rim calcified nodule in the lateral aspect of the midpole of the right lobe of the thyroid gland that is unchanged compared to the prior CT neck on 10/07/2019 and for which follow-up is not necessary. COMMENTS: Consistent with the [employer]'s Incidental Findings Committee white paper (J Am Yoselyn Radiol 2015): In patients aged 35 years and older with an incidental thyroid nodule equal to or greater than 1.[address], MRI or extrathyroidal US, further evaluation with dedicated thyroid US is recommended for patients with normal life expectancy and without comorbidities. For smaller nodules without suspicious features, no further evaluation or follow up is recommended. Electronically signed by: Madhu Luis On 12/15/2019 21:18:23 PM
== END ==
LOC: M RAD 13:41
PROVIDERS: ATTEND Internal Medicine Medical Oncology
DX: Z85.72 Personal history of non-Hodgkin lymphomas (principal)

== ENCOUNTER 2020-03-26 17:55 | Emergency (ER) | payer OTHER ==
[~2020-03-26] VITALS: Ht 160 cm; Wt 70.3 kg
[~2020-03-26 17:55] MED LIST changes: -GASTROGRAFIN SOLUTION 30ML (Q9963) As Ordered ONE; -ISOVUE-370 76% 100ML VIAL As Ordered ONE
[2020-03-26] MEDS ORDERED: ESCI20TA (18:05)
[2020-03-26] MEDS ORDERED: CLON0.5T2 (18:05)
[2020-03-26] MEDS ORDERED: LIDOCAINE 5% (LIDODERM) PATCH TD ONE (18:45)
[2020-03-26] MEDS ORDERED: NS 1,000 ML IV ONE (18:45)
[2020-03-26] MEDS ORDERED: KETOROLAC 30 MG/ML 1ML VIAL IV ONE (18:45)
[2020-03-26] MEDS ORDERED: ONDANSETRON 4MG/2ML VIAL IV ONE (18:45)
[2020-03-26 19:17] LABS: BASO % 0.5 % (0.0-1.0); EOS % 0.5 % (0.0-3.0); HEMATOCRIT 40.6 % (36.0-47.0); LYMPH # 1.3 10^3/uL (1.5-5.0); LYMPH % 23.1 % (24.0-44.0); MEAN CORPUSCULAR HEMOGLOBIN 32.4 pg (27.0-33.0); MEAN CORPUSCULAR HGB CONC 34.5 g/dl (32.0-36.5); MONO # 0.7 10^3/uL (0.0-0.8); MONO % 11.7 % (0.0-5.0); NEUTROPHILS # 3.7 10^3/uL (1.5-8.5); NEUTROPHILS % 63.9 % (36.0-66.0); PLATELET COUNT, AUTOMATED 234 10^3/uL (150-450); RED BLOOD COUNT 4.32 10^6/uL (4.00-5.40); WHITE BLOOD COUNT 5.8 10^3/uL (4.0-10.0)
[2020-03-26 19:34] LABS: ALBUMIN 3.6 GM/DL (3.2-5.2); BILIRUBIN,DIRECT 0.1 MG/DL (0.0-0.2); BILIRUBIN,TOTAL 0.2 MG/DL (0.2-1.0); TOTAL PROTEIN 6.6 GM/DL (6.4-8.2)
[2020-03-26] MEDS ORDERED: MORPHINE 4 MG/ML 1ML VIAL/SYRINGE (J2270) IV ONE (19:45)
--- NOTE | 2020-03-26 20:53 | REPVR ---
PROCEDURE INFORMATION: Exam: CT Abdomen And Pelvis Without Contrast Exam date and time: 03/26/2020 7:47 PM Age: 44 years old Clinical indication: Abdominal pain; Flank; Right; Additional info: R flank pain R/O kidney stone TECHNIQUE: Imaging protocol: Computed tomography of the abdomen and pelvis without contrast. Radiation optimization: All CT scans at this facility use at least one of these dose optimization techniques: automated exposure control; mA and/or kV adjustment per patient size (includes targeted exams where dose is matched to clinical indication); or iterative reconstruction. COMPARISON: CT ABD PELVIS WITH CONTRAST 12/15/2019 3:27 PM FINDINGS: Lungs: There is mild atelectasis on the left. Heart: The heart is normal in size. There is a small amount of pericardial effusion. Liver: There is a small cyst anterior portion of the liver unchanged Gallbladder and bile ducts: The gallbladder is contracted. Pancreas: Normal appearing pancreas Spleen: Normal spleen. Adrenals: Normal adrenal glands. Kidneys and ureters: Normal. No hydronephrosis. Stomach and bowel: There is no evidence of bowel obstruction. Appendix: Normal appearing appendix. Intraperitoneal space: There is no evidence of pneumoperitoneum. There is no evidence of mesenteric mass. Vasculature: Unremarkable. No abdominal aortic aneurysm. Lymph nodes: There is no evidence of lymphadenopathy. Bladder: Normal urinary bladder. Reproductive: The uterus is bulbous and retroverted probably secondary to fibroid changes. Normal-sized ovaries. Bones/joints: There is no evidence of bony abnormality. Soft tissues: There is no evidence of soft tissue abnormality. IMPRESSION: There is no evidence of a stone in the path of the right or left ureter. Electronically signed by: Paulo Gutiérrez On 03/26/2020 20:53:12 PM
[2020-03-26] MEDS ORDERED: LIDO5DIS41 TOP (21:12)
[2020-03-26] MEDS ORDERED: ROBA750T4 PO (21:12)
[2020-03-26] MEDS ORDERED: IBUP80TA PO (21:14)
[2020-03-26] MEDS ORDERED: METHOCARBAMOL 1,000 MG/10 ML VIAL (J2800) IV ONE (21:15)
[2020-03-26 22:07] VITALS: BP 110/57
[2020-03-27] MEDS ORDERED: **NOTE PATIENT COMMENT** MISC XX ONE (06:45)
== END 2020-03-26 22:14 | disposition home or self-care (01) ==
LOC: M ED 17:55
DX: M54.9 Dorsalgia, unspecified (principal); Z85.79 Personal history of other malignant neoplasms of lymphoid, hematopoietic and related tissues; F17.200 Nicotine dependence, unspecified, uncomplicated; Z79.899 Other long term (current) drug therapy
CPT/HCPCS: 74176; 80047; 80076; 81001; 83690; 84702; 85025; 96361; 96374; 96375; 99284; J1885; J2270; J2405; J2800

== ENCOUNTER → 2020-05-30 | Outpatient (CLI) | payer SELFPAY ==
[~2020-05-30] MED LIST changes: +CLON0.5T2; +ESCI20TA; +IBUP80TA PO; +LIDO5DIS41 TOP; +ROBA750T4 PO
== END ==
LOC: M LABSMTC 11:44
PROVIDERS: ATTEND Pediatrics
DX: Z20.828 Contact with and (suspected) exposure to other viral communicable diseases (principal)

== ENCOUNTER 2020-06-16 11:37 | Emergency (ER) | payer OTHER ==
[~2020-06-16] VITALS: Ht 160 cm; Wt 76.4 kg
--- NOTE | 2020-06-16 12:44 | REP ---
INDICATION: r/o bulging disc. COMPARISON: 15 December 2019 prior study.. TECHNIQUE: Helical scanning is acquired and overlapping 2 mm high resolution axial images were generated and reviewed at bone and soft tissue window settings. Coronal and sagittal multiplanar re-formations images are generated. FINDINGS: There is no evidence of cervical spine element fracture. No skull base fracture is seen. Cervical vertebral body heights are preserved. Alignment is normal. Facet joints are normally aligned bilaterally at each cervical level on multiplanar re-formations images. There is no evidence of intraspinal or paraspinal hematoma. No extra vertebral abnormality is seen. There are degenerative spondylosis changes with straightening and slight reversal of normal cervical lordosis. Anterior discogenic spurring is present at C3-4 C5-6 and C6-7. At C6-7, there is posterior osteophytic ridging most prominent on the left and there is significant left-sided foraminal narrowing. No other disc bulging is appreciated. There is a small calcification in the right thyroid gland again noted unchanged. IMPRESSION: Degenerative spondylosis changes. Disc bulging and associated osteophyte formation with left-sided uncovertebral spurring and left-sided neural foraminal narrowing at C6-7.. <Electronically signed by Aguila Spivey > 06/16/20 [id number]
--- NOTE | 2020-06-16 12:51 | REP ---
INDICATION: R shoulder pain. COMPARISON: None. TECHNIQUE: Three views of the right shoulder are presented. FINDINGS: A right-sided Xqnvmq-[id number] catheter is seen with its tip in the expected location of the superior vena cava. The right glenohumeral and acromioclavicular joints are normally aligned. Periarticular soft tissues are unremarkable. No fracture or subluxation is seen. No erosive changes are noted. IMPRESSION: Negative radiographs of the right shoulder. Right-sided [id number] catheter noted in place. <Electronically signed by Aguila Spivey > 06/16/20 [id number]
[2020-06-16 13:35] VITALS: BP 138/81
== END 2020-06-16 13:36 | disposition home or self-care (01) ==
LOC: M ED 11:37
DX: S43.401A Unspecified sprain of right shoulder joint, initial encounter (principal); S46.911A Strain of unspecified muscle, fascia and tendon at shoulder and upper arm level, right arm, initial encounter; X58.XXXA Exposure to other specified factors, initial encounter; Y92.89 Other specified places as the place of occurrence of the external cause; Y93.89 Activity, other specified; Y99.8 Other external cause status; F43.10 Post-traumatic stress disorder, unspecified; F90.9 Attention-deficit hyperactivity disorder, unspecified type; M47.812 Spondylosis without myelopathy or radiculopathy, cervical region; M51.9 Unspecified thoracic, thoracolumbar and lumbosacral intervertebral disc disorder; F11.11 Opioid abuse, in remission; F17.200 Nicotine dependence, unspecified, uncomplicated; Z79.899 Other long term (current) drug therapy; Z85.72 Personal history of non-Hodgkin lymphomas; Z98.890 Other specified postprocedural states; Z82.49 Family history of ischemic heart disease and other diseases of the circulatory system

== ENCOUNTER → 2020-09-23 | Outpatient (REF) ==
[~2020-09-23] MED LIST changes: +ESCI10TA16; -ESCI10TA2; -ESCI20TA; +ESCI20TA16
[2020-09-23 12:02] LABS: RSV AMPLIFICATION NEGATIVE (NEGATIVE)
== END ==
LOC: M EMP 10:33
PROVIDERS: ATTEND Family Medicine
DX: Z11.59 Encounter for screening for other viral diseases (principal)

== ENCOUNTER → 2020-10-11 | Outpatient (POV) | payer OTHER ==
[~2020-10-11] MED LIST changes: -AMPH1CAP5; +AMPH1CAP5 PO; -VALA500T5; +VALA500T5 PO
--- NOTE | 2020-10-14 12:07 | IRPN ---
[facility] IR Progress Note IR Progress Note DATE: Oct 11, 2020 Patient agreed to this telephone follow up. I spent 10 minutes talking to the patient. FOLLOW-UP: Status post port placement in 2019. Patient has completed therapy for lymphoma in july 2019 and would like her port removed. Follow up scans show no recurrence. No fevers or chills. No issue at port site. port was flushed recently. She is not on any blood thinners. I reviewed the images of the port placed 2019. IMPRESSION: Patient with functioning port placed in 2019. Treatment complete. Patient will be scheduled for port removal. Thank you for this referral Allergies Coded Allergies: No Known Allergies (Unverified , 12/30/16) LUCRECIA CLARK MD Oct 14, 2020 12:07
== END ==
LOC: M TMIRPOV 14:40
PROVIDERS: ATTEND Radiology Diagnostic Radiology
DX: Z45.2 Encounter for adjustment and management of vascular access device (principal); Z85.72 Personal history of non-Hodgkin lymphomas

== ENCOUNTER → 2020-10-24 | Outpatient (REF) | LOC: M LABSMTC 10:01 | PROVIDERS: ATTEND Pediatrics | DX: Z11.52 Encounter for screening for COVID-19 (principal) ==

== ENCOUNTER → 2020-10-27 | Outpatient (CLI) | payer OTHER ==
[~2020-10-27] MED LIST changes: +LIDOCAINE 1% MDV 20ML VIAL As Ordered ONE; +MIDAZOLAM INJ 2MG/2ML VIAL (J2250 PER 1MG) As Ordered ONE; +ceFAZolin 1GM VIAL (J0690 PER 500MG) As Ordered ONE; +diphenhydrAMINE 50MG/ML VIAL (J1200) As Ordered ONE; +fentaNYL 100 MCG/2 ML INJECTION (J3010) As Ordered ONE
--- NOTE | 2020-10-27 08:22 | IRHP ---
[facility] IR Pre-Procedure H & P General Date of Service: Oct 27, 2020 Procedure: Same Day Surgery Interval History and Physical I have seen the patient and reviewed last H & P performed within 30 days. There is no significant interval change. History of Present Illness Chief Complaint The patient is a 44-year-old female admitted with a reason for visit of Lymphoma, Treatment Complete. PRE-PROCEDURE DIAGNOSIS:lymphoma HEART: normal rate. LUNGS: normal breathing at rest. ASA Classification ASA Classification: II-Mild systemic disease Mallampati Score: II NPO: Yes Problems with prior sedation: No Obstructive Sleep Apnea: No Plan moderate sedation Allergies Coded Allergies: No Known Allergies (Unverified , 12/30/16) Home Medications Scheduled Dextroamphetamine/Amphetamine (Dextroamp-Amphet ER 30 mg Cap), 1 CAP PO DAILY, (Reported) Lidocaine (Lidoderm), 1 PATCH TOP DAILY Lidocaine/Prilocaine (Lidocaine-Prilocaine Cream), 1 DOSE TOP ASDIRECTED Valacyclovir HCl (Valacyclovir), 1 TAB PO DAILY, (Reported) Scheduled PRN Ibuprofen (Ibuprofen), 800 MG PO Q8HP PRN for PAIN LUCRECIA CLARK MD Oct 27, 2020 08:22
--- NOTE | 2020-10-27 11:17 | IRPON ---
IR Postoperative Note Date Of Procedure: Oct 27, 2020 Time Of Procedure: 11:15 IR Postoperative Note Port Removal / Explant Clinical Information:Lymphoma. Treatment complete. Patient would like port removed.. Physician: Dr. Wright Procedure: The patient was advised of the benefits, risks, and alternatives of the procedure and informed consent was obtained. A time out was performed with verification of the patient's name, MRN, site of procedure, and type of procedure to be performed. The patient was positioned in the supine position on the angiographic table. The site was prepped and draped in the usual sterile fashion. Moderate sedation was performed by the physician including the presence of an independent trained RN who assisted in monitoring the patient's level of consci ousness and physiological status. Following the administration of fentanyl and Versed the physician spent 30 minutes of continuous [id number] time with the patient. A mixing picker tender radiograph reveals a right sided port. The soft tissues overlying the port were anesthetized with lidocaine. An incision was made over the port using a 15 blade scalpel in the location of the prior incision. The catheter was then freed with blunt dissection and extracted. Pressure was applied to obtain hemostasis. The port was then freed with blunt dissection and subsequently removed. There were no signs of infection. After hemostasis was achieved, the incision was closed with interrupted deep 3-0 Vicryl sutures and subcuticular Monocryl suture followed by glue and steri-strips. The site was covered with a sterile dressing. The patient tolerated the procedure well and was returned to the PRU in stable c ondition. EBL:Less than 5 mL Complications:None. Conclusions: 1. Successful explant of a right-sided port. 2. No signs of infection. Thank you for this referral LUCRECIA WRIGHT MD Oct 27, 2020 11:16
[2020-10-27 11:42] VITALS: BP 101/61
== END ==
LOC: M IRPRO 07:58
PROVIDERS: ATTEND Radiology Diagnostic Radiology
DX: C90.00 Multiple myeloma not having achieved remission (principal); Z79.899 Other long term (current) drug therapy

== ENCOUNTER → 2020-12-01 | Outpatient (REF) ==
[~2020-12-01] MED LIST changes: +LIDO1CRE42 TOP; -LIDO2.5C15 TOP; -LIDOCAINE 1% MDV 20ML VIAL As Ordered ONE; -MIDAZOLAM INJ 2MG/2ML VIAL (J2250 PER 1MG) As Ordered ONE; -ceFAZolin 1GM VIAL (J0690 PER 500MG) As Ordered ONE; -diphenhydrAMINE 50MG/ML VIAL (J1200) As Ordered ONE; -fentaNYL 100 MCG/2 ML INJECTION (J3010) As Ordered ONE
== END ==
LOC: M LABSMTC 12:21
PROVIDERS: ATTEND Pediatrics
DX: Z20.822 Contact with and (suspected) exposure to COVID-19 (principal)

== ENCOUNTER → 2021-03-24 | Outpatient (CLI) | payer OTHER ==
[~2021-03-24] MED LIST changes: +ADDE30CA3 PO; +GASTROGRAFIN SOLUTION 30ML (Q9963) As Ordered ONE; +ISOVUE-370 76% 100ML VIAL As Ordered ONE; +METH-1177; -METH10TA2; -OLAN10TA2 PO; +OLAN1TAB20 PO
[2021-03-24 14:32] LABS: BASO % 0.7 % (0.0-1.0); EOS % 0.4 % (0.0-3.0); HEMOGLOBIN 14.2 g/dl (12.0-15.5); LYMPH # 1.3 10^3/uL (1.5-5.0); LYMPH % 23.5 % (24.0-44.0); MEAN CORPUSCULAR HEMOGLOBIN 31.1 pg (27.0-33.0); MEAN CORPUSCULAR VOLUME 94.3 fl (80.0-96.0); MONO # 0.6 10^3/uL (0.0-0.8); MONO % 9.8 % (2.0-8.0); NEUTROPHILS # 3.7 10^3/uL (1.5-8.5); NEUTROPHILS % 65.1 % (36.0-66.0); PLATELET COUNT, AUTOMATED 265 10^3/uL (150-450); RED BLOOD COUNT 4.56 10^6/uL (4.00-5.40); WHITE BLOOD COUNT 5.7 10^3/uL (4.0-10.0)
[2021-03-24 15:00] LABS: ALBUMIN 4.3 GM/DL (3.2-5.2); ALT/SGPT 25 U/L (12-78); BILIRUBIN,TOTAL 0.4 MG/DL (0.2-1.0); BLOOD UREA NITROGEN 13 MG/DL (7-18); CALCIUM LEVEL 9.7 MG/DL (8.5-10.1); CARBON DIOXIDE LEVEL 31 MEQ/L (21-32); CHLORIDE LEVEL 103 MEQ/L (98-107); CREATININE FOR GFR 0.77 MG/DL (0.55-1.30); GLOMERULAR FILTRATION RATE > 60.0 (>58); GLUCOSE, FASTING 86 MG/DL (70-100); LDH LACTATE DEHYDROGENASE 183 U/L (84-246); POTASSIUM SERUM 3.8 MEQ/L (3.5-5.1); SODIUM LEVEL 140 MEQ/L (136-145); TOTAL PROTEIN 7.7 GM/DL (6.4-8.2)
--- NOTE | 2021-03-24 17:05 | REP ---
INDICATION: LYMPHOMA- COMING BACK AROUND 3. COMPARISON: 12/15/2019. TECHNIQUE: CT chest performed following the intravenous administration of 100 cc of Isovue 370. Sagittal and coronal reconstruction images are performed. FINDINGS: Lungs: Clear, no infiltrate or nodule. Mediastinum: No adenopathy. Paloma: No adenopathy. Axilla: No adenopathy. Pleura: No effusion. Heart: Not enlarged. Thoracic aorta: No aneurysm or dissection. Visualized osseous structures: Unremarkable. IMPRESSION: Unremarkable CT chest. No change since prior study. <Electronically signed by Dae Ann > 03/24/21 [id number]
--- NOTE | 2021-03-24 17:12 | REP ---
INDICATION: LYMPHOMA- COMING BACK AROUND 3 COMPARISON: 03/26/2020 as well as other prior exams. TECHNIQUE: CT Scan of the abdomen and pelvis was performed with intravenous administration of 100 cc of Isovue 370, and oral contrast. Sagittal and coronal reconstruction images are performed. FINDINGS: Lung bases: Unremarkable. Liver: Normal Gallbladder: Unremarkable. Spleen: Normal. Adrenals: Normal. Pancreas: Normal. Kidneys: There is a stable 1.2 cm nodule in the upper pole the right kidney. Small and large bowel: Unremarkable. Free fluid: None. Abdominal aorta: No aneurysm or dissection. Adenopathy: None. Appendix: Not inflamed. Osseous structures: Unremarkable. Pelvis: No mass. IMPRESSION: Stable exam. No new findings. <Electronically signed by Dae Ann > 03/24/21 [id number]
--- NOTE | 2021-03-24 17:52 | REPVR ---
PROCEDURE INFORMATION: Exam: CT Neck With Contrast Exam date and time: 03/24/2021 4:43 PM Age: 45 years old Clinical indication: Condition or disease; Cancer; Other: Lymphoma; Additional info: Lymphoma- coming back around 3 TECHNIQUE: Imaging protocol: Computed tomography images of the neck with contrast. Radiation optimization: All CT scans at this facility use at least one of these dose optimization techniques: automated exposure control; mA and/or kV adjustment per patient size (includes targeted exams where dose is matched to clinical indication); or iterative reconstruction. Contrast material: ISOVUE 370; Contrast volume: 100 ml; Contrast route: INTRAVENOUS (IV); COMPARISON: CT Neck with contrast 12/15/2019 3:27 PM FINDINGS: Limitations: The study is mildly limited due to patient motion artifact. Nasopharynx: Unremarkable. Oropharynx: Unremarkable. No significant tonsillar enlargement. Hypopharynx: Unremarkable. Larynx: Unremarkable. Normal epiglottis. Retropharyngeal space: Unremarkable. Submandibular/Parotid glands: Normal. Glands are normal in size. Thyroid: A 5 mm calcified right thyroid nodule is present. No further follow-up is necessary. Lymph nodes: Unremarkable. No lymphadenopathy. Trachea: Visualized trachea is unremarkable. Lungs: Unremarkable as visualized. Bones/joints: Moderate degenerative changes of the cervical spine are present. Soft tissues: Unremarkable. No significant soft tissue swelling. IMPRESSION: 1. No acute abnormality. 2. Chronic findings as discussed above. COMMENTS: Consistent with the [employer]'s Incidental Findings Committee white paper (J Am Yoselyn Radiol 2015): In patients aged 35 years and older with an incidental thyroid nodule equal to or greater than 1.[address], MRI or extrathyroidal US, further evaluation with dedicated thyroid US is recommended for patients with normal life expectancy and without comorbidities. For smaller nodules without suspicious features, no further evaluation or follow up is recommended. Electronically signed by: Deric Medrano On 03/24/2021 17:51:47 PM
== END ==
LOC: M RAD 12:45
PROVIDERS: ATTEND Internal Medicine Medical Oncology
DX: C85.90 Non-Hodgkin lymphoma, unspecified, unspecified site (principal); N28.89 Other specified disorders of kidney and ureter; E04.1 Nontoxic single thyroid nodule
CPT/HCPCS: 36415; 70491; 71260; 74177; 80053; 83615; 85025; Q9963; Q9967

== ENCOUNTER → 2021-04-18 | Outpatient (REF) ==
[~2021-04-18] MED LIST changes: -GASTROGRAFIN SOLUTION 30ML (Q9963) As Ordered ONE; -ISOVUE-370 76% 100ML VIAL As Ordered ONE; +TRIA1CR80 TOP
[2021-04-18 16:53] LABS: RSV AMPLIFICATION NEGATIVE (NEGATIVE)
== END ==
LOC: M EMP 14:31
PROVIDERS: ATTEND Family Medicine
DX: Z20.822 Contact with and (suspected) exposure to COVID-19 (principal)

== ENCOUNTER → 2021-04-25 | Outpatient (REF) | LOC: M EMP 11:22 | PROVIDERS: ATTEND Family Medicine | DX: Z11.52 Encounter for screening for COVID-19 (principal) ==

== ENCOUNTER → 2021-12-07 | Outpatient (CLI) | payer OTHER ==
[~2021-12-07] MED LIST changes: -FLUC100T PO; +FLUC100T3 PO; +ONDA-84 PO; -ONDA8TAB10 PO; -PROC10TA4 PO; +PROC10TA5 PO
== END ==
LOC: M RAD 16:01
PROVIDERS: ATTEND Internal Medicine Medical Oncology
DX: C83.30 Diffuse large B-cell lymphoma, unspecified site (principal); E04.1 Nontoxic single thyroid nodule

== ENCOUNTER → 2021-12-08 | Outpatient (REF) ==
[2021-12-08 10:38] LABS: RSV AMPLIFICATION NEGATIVE (NEGATIVE)
== END ==
LOC: M EMP 09:08
PROVIDERS: ATTEND Family Medicine
DX: Z11.52 Encounter for screening for COVID-19 (principal)

== ENCOUNTER → 2022-05-04 | Outpatient (REF) | LOC: M EMP 08:33 | PROVIDERS: ATTEND Family Medicine | DX: Z20.822 Contact with and (suspected) exposure to COVID-19 (principal) ==

== ENCOUNTER → 2022-05-07 | Outpatient (REF) ==
[2022-05-07 11:30] LABS: RSV AMPLIFICATION NEGATIVE (NEGATIVE)
== END ==
LOC: M EMP 10:32
PROVIDERS: ATTEND Family Medicine
DX: Z20.822 Contact with and (suspected) exposure to COVID-19 (principal); Z11.52 Encounter for screening for COVID-19

== ENCOUNTER → 2023-06-08 | Outpatient (REF) ==
[~2023-06-08] MED LIST changes: -LIDO1CRE42 TOP; +LIDO30CR18 TOP; +LORA-1041; -LORA-674
[2023-06-08 16:04] LABS: RSV AMPLIFICATION NEGATIVE (NEGATIVE)
== END ==
LOC: M EMP 14:31
PROVIDERS: ATTEND Family Medicine
DX: Z20.822 Contact with and (suspected) exposure to COVID-19 (principal)

== ENCOUNTER → 2023-06-11 | Outpatient (REF) | LOC: M EMP 11:02 | PROVIDERS: ATTEND Family Medicine | DX: Z11.52 Encounter for screening for COVID-19 (principal) ==